=== PATIENT | male | born 1960 | race Two or more races ===

== ENCOUNTER 2022-02-25 18:42 | Inpatient (IN) | payer OTHER ==
[~2022-02-25] VITALS: Ht 157.5 cm; Wt 82.4 kg
[2022-02-25] MEDS ORDERED: FUROSEMIDE 40 MG/4 ML VIAL IV ONE (19:15)
[2022-02-25] MEDS ORDERED: ONDANSETRON HCL 4 MG/2 ML VIAL IV ONE (19:15)
[2022-02-25 19:16] LABS: Hemoglobin 15.6 g/dL (13.5-17.5); Mean Corpuscular Hemoglobin 30.3 pg (28.0-32.0); Mean Corpuscular Hgb Conc. 33.1 g/dL (32.0-36.0); Mean Corpuscular Volume 91.5 fL (80.0-100.0); Red Blood Cells 5.13 10^6/uL (4.5-5.90); Red Cell Distribution Width 14.4 % (11.8-14.3); White Blood Cell 29.7 10^3/uL (4.4-10.8)
[2022-02-25 19:20] LABS: Basophils % (manual) 0 (0.0-2.0); Blast Cells 0; Eosinophils % (manual) 0 (0-7); Myelocytes % 0; Promyelocytes % 0; Reactive Lymphocytes 0
[2022-02-25 19:32] LABS: Albumin 2.7 g/dL (3.4-5.0); BUN/Creatinine Ratio 10.6; Calcium 8.6 mg/dL (8.5-10.1); Potassium 3.2 mmol/L (3.5-5.1)
[2022-02-25 19:34] LABS: Total Protein 5.6 g/dL (6.4-8.2)
[2022-02-25 19:36] LABS: INR 1.1 (0.9-1.15); Partial Thromboplastin Time 29.1 sec (24.6-33.4)
[2022-02-25 19:37] LABS: Amylase 56 U/L (25-115); Lipase 160 U/L (73-393)
[2022-02-25] MEDS ORDERED: ALBUTEROL SULF 2.5 MG/0.5ML(0.5%) NEB SOLN NEB ONE (19:45)
[2022-02-25] MEDS: NOREPINEPHRINE 8 MG/250ML KIT 250 ML IV SCH (19:57)
[2022-02-25 20:11] LABS: Band Neutrophils % (manual) 27; Lymphocytes % (manual) 11 (10.0-50.0); Metamyelocytes % 1; Monocytes % (manual) 7 (0-12)
[2022-02-25 20:14] VITALS: BP 68/32
[2022-02-25] MEDS ORDERED: levoFLOXacin 500MG 100 ML IV ONE (20:30)
[2022-02-25 21:50] LABS: Lactic Acid w/Reflex 6.2 mmol/L (0.4-2.0)
[2022-02-25] MEDS ORDERED: SOD CHL 0.45% 1,000 ML IV ONE (22:15)
[2022-02-25] MEDS ORDERED: NITROGLYCERIN 0.4 MG SL TAB SL PRN (22:15)
[2022-02-25] MEDS ORDERED: MORPHINE SULFATE INJ 2 MG/ml SYRG IV PRN (22:15)
[2022-02-25] MEDS ORDERED: POTASSIUM CHL 20MEQ/100ML 100 ML IV ONE (22:30)
[2022-02-25] MEDS ORDERED: DOPamine 1600MCG/ML D5W 250 ML IV ONE (22:30)
[2022-02-25 22:42] LABS: Albumin 2.6 g/dL (3.4-5.0); Calcium 8.7 mg/dL (8.5-10.1); Potassium 3.6 mmol/L (3.5-5.1)
[2022-02-25 22:45] LABS: BUN/Creatinine Ratio 10.4; Bilirubin, Total 2.1 mg/dL (0.2-1.0); Total Protein 6.2 g/dL (6.4-8.2)
[2022-02-25] MEDS ORDERED: SODIUM BICARBONATE 8.4 % INJ 50ML VIAL IV ONE (22:45)
[2022-02-25] MEDS ORDERED: VANCOMYCIN PER PHARMACY 0 MG IV SCH (23:15)
[2022-02-25] MEDS ORDERED: VANCOMYCIN 1GM/250ML 250 ML IV ONE (23:30)
[2022-02-26] MEDS: ALBUTEROL SULF 2.5 MG/0.5ML(0.5%) NEB SOLN NEB SCH ×6 (00:11→18:02)
[2022-02-26 01:17] VITALS: BP 103/45
[2022-02-26] MEDS: NOREPINEPHRINE 8 MG/250ML KIT 250 ML IV SCH ×2 (01:46→22:28)
[2022-02-26 04:27] LABS: Urine Bacteria FEW /hpf (None Seen); Urine Blood 3+ /uL (Negative); Urine Mucus FEW (None Seen); Urine Specific Gravity 1.012 (1.001-1.035); Urine WBC 72 /hpf (0 - 3)
[2022-02-26 05:53] LABS: Hematocrit 47.2 % (41.0-53.0); Hemoglobin 15.8 g/dL (13.5-17.5); Mean Corpuscular Hemoglobin 30.7 pg (28.0-32.0); Mean Corpuscular Hgb Conc. 33.5 g/dL (32.0-36.0); Mean Corpuscular Volume 91.8 fL (80.0-100.0); Red Blood Cells 5.15 10^6/uL (4.5-5.90); Red Cell Distribution Width 14.4 % (11.8-14.3)
[2022-02-26] MEDS ORDERED: DOPamine 1600MCG/ML D5W 250 ML IV ONE (05:53)
[2022-02-26] MEDS ORDERED: SODIUM CHLORIDE 0.9% 500 ML IV ONE (06:00)
[2022-02-26] MEDS: DOPamine 1600MCG/ML D5W 250 ML IV SCH (06:00)
[2022-02-26] MEDS: IPRATROPIUM BROM 0.5 MG/2.5ML INH SOL NEB SCH ×5 (06:00→18:02)
[2022-02-26 06:15] LABS: Albumin 2.4 g/dL (3.4-5.0); BUN/Creatinine Ratio 9.9; Calcium 7.8 mg/dL (8.5-10.1); Potassium 3.8 mmol/L (3.5-5.1)
[2022-02-26 06:22] LABS: Bilirubin, Total 1.3 mg/dL (0.2-1.0); Total Protein 5.4 g/dL (6.4-8.2)
[2022-02-26 06:24] LABS: White Blood Cell 41.5 10^3/uL (4.4-10.8)
[2022-02-26 06:25] LABS: Basophils % (manual) 0 (0.0-2.0); Blast Cells 0; Eosinophils % (manual) 0 (0-7); Metamyelocytes % 0; Promyelocytes % 0; Reactive Lymphocytes 0
[2022-02-26 06:53] LABS: Band Neutrophils % (manual) 41; Lymphocytes % (manual) 8 (10.0-50.0); Monocytes % (manual) 1 (0-12); Myelocytes % 3
[2022-02-26] MEDS: SODIUM CHLORIDE 0.9% 1,000 ML IV SCH ×4 (07:30→20:10)
[2022-02-26] MEDS ORDERED: DEXTROSE (50%) 50ML SYRG IV PRN (07:30)
[2022-02-26] MEDS ORDERED: INSULIN LANTUS (GLARGINE) 1 /0.01ml (100units/ml) SC ONE (07:30)
[2022-02-26] MEDS: ACCU-CHEK COMFORT CURVE STRIP VI SCH ×10 (07:30→21:00)
[2022-02-26] MEDS: InsuLIN R (HUMAN) 100 UNITS in SODIUM CHL 0.9% 99 ML IV SCH ×2 (08:33→10:29)
[2022-02-26] MEDS: SODIUM BICARBONATE 50ML VIAL 75 ML in SOD CHL 0.45% 1,000 ML IV SCH ×2 (09:15→18:18)
[2022-02-26] MEDS: MEROPENEM 500MG IVPB 50 ML IV SCH ×2 (09:16→21:57)
[2022-02-26] MEDS ORDERED: VANCOMYCIN 500 MG in D5W 5% 100 ML IV ONE (09:30)
[2022-02-26 09:32] LABS: Albumin 2.4 g/dL (3.4-5.0); BUN/Creatinine Ratio 9.5; Bilirubin, Total 1.4 mg/dL (0.2-1.0); Calcium 7.9 mg/dL (8.5-10.1); Potassium 3.9 mmol/L (3.5-5.1); Total Protein 5.7 g/dL (6.4-8.2)
[2022-02-26] MEDS ORDERED: PIPERACILLIN-TAZOB 3.375GM 100 ML IV SCH (10:00)
[2022-02-26] MEDS ORDERED: methylPREDNISolone SOD SUCC 40 MG/ML VL IV SCH (10:00)
[2022-02-26] MEDS: PANTOPRAZOLE 40 MG/10 ML VIAL INJ IV SCH ×2 (10:27→21:56)
[2022-02-26 10:53] LABS: Basophils # (auto) 0.1 10 ^3/uL (0-0.2); Basophils % (auto) 0.2 % (0.0-2.0); Eosinophils % (auto) 0.1 % (0.0-7.0); Hemoglobin 14.8 g/dL (13.5-17.5); Lymphocytes % (auto) 4.1 % (10.0-50.0); Mean Corpuscular Hgb Conc. 33.1 g/dL (32.0-36.0); Monocytes # (auto) 1.1 10 ^3/uL (0-1.3); Monocytes % (auto) 2.4 % (0.0-12.0); Neutrophils % (auto) 93.2 % (37.0-80.0); Nucleated Red Blood Cells % 0.2 %
[2022-02-26 10:56] LABS: Eosinophils # (auto) 0 10 ^3/uL (0-0.8); Hematocrit 44.9 % (41.0-53.0); Lymphocytes # (auto) 1.8 10 ^3/uL (0.4-5.4); Mean Corpuscular Hemoglobin 30.1 pg (28.0-32.0); Neutrophils # (auto) 41.9 10 ^3/uL (1.6-8.6); Red Blood Cells 4.94 10^6/uL (4.5-5.90); Red Cell Distribution Width 14.5 % (11.8-14.3)
[2022-02-26 11:23] LABS: White Blood Cell 44.9 10^3/uL (4.4-10.8)
[2022-02-26] MEDS ORDERED: SODIUM CHLORIDE 0.9% 1,000 ML IV SCH (11:30)
[2022-02-26] MEDS ORDERED: MEROPENEM 1GM IVPB 100 ML IV SCH (14:00)
[2022-02-26 14:19] LABS: BUN/Creatinine Ratio 11.4; Calcium 7.9 mg/dL (8.5-10.1); Potassium 4.3 mmol/L (3.5-5.1)
[2022-02-26] MEDS ORDERED: ENOXAPARIN SOD 30 MG/0.3 ML SYRINGE SC ONE (14:30)
[2022-02-26] MEDS: PHENYLEPHRINE INJ 80 MG in SODIUM CHL 0.9% 242 ML IV SCH (14:55)
[2022-02-26 16:45] LABS: Cholesterol 110 mg/dL (< 200)
[2022-02-26 16:52] LABS: HDL Cholesterol 37 mg/dL (40-59); LDL Cholesterol 16 mg/dL (< 100); Triglycerides 347 mg/dL (< 150)
[2022-02-26] MEDS ORDERED: PHENYLEPHRINE IV 250 ML IV ONE (20:47)
[2022-02-26 21:04] LABS: BUN/Creatinine Ratio 11.7; Calcium 7.2 mg/dL (8.5-10.1); Potassium 4.9 mmol/L (3.5-5.1)
[2022-02-26] MEDS ORDERED: VASOPRESSIN 20 UNIT/ML ONE ×2 (22:35→22:38)
[2022-02-26] MEDS: VASOPRESSIN 50 UNITS in D5W 5% 247.5 ML IV SCH (23:10)
[2022-02-27] VITALS (58 sets, daily range): BP systolic 76–161; BP diastolic 32–77
[2022-02-27] MEDS ORDERED: SODIUM BICARBONATE 8.4 % INJ 50ML VIAL IV ONE (02:14)
[2022-02-27 02:17] LABS: Alcohol, Urine < 3.0 mg/dL (0-10); Amphetamine Screen, Urine NEGATIVE (NEGATIVE); Barbiturate Scree,Urine NEGATIVE (NEGATIVE); Benzodiazephine Screen, Urine NEGATIVE (NEGATIVE); Cannabinoid Screen, Urine NEGATIVE (NEGATIVE); Cocaine Screen, Urine NEGATIVE (NEGATIVE); Opiate Scree,Urine NEGATIVE (NEGATIVE); Phencyclidine Screen, Urine NEGATIVE (NEGATIVE)
[2022-02-27] MEDS: SODIUM BICARBONATE 50ML VIAL 75 ML in SOD CHL 0.45% 1,000 ML IV SCH ×3 (02:20→19:39)
[2022-02-27] MEDS: ALBUTEROL SULF 2.5 MG/0.5ML(0.5%) NEB SOLN NEB SCH ×4 (02:34→18:55)
[2022-02-27] MEDS: IPRATROPIUM BROM 0.5 MG/2.5ML INH SOL NEB SCH ×3 (02:34→18:54)
[2022-02-27] MEDS ORDERED: PHENYLEPHRINE HCL 10 MG/ML VL ONE ×2 (02:54→03:01)
[2022-02-27 03:10] LABS: BUN/Creatinine Ratio 14.4; Calcium 6.5 mg/dL (8.5-10.1); Potassium 4.6 mmol/L (3.5-5.1)
[2022-02-27] MEDS: NOREPINEPHRINE 8 MG/250ML KIT 250 ML IV SCH (03:23)
[2022-02-27] MEDS: SODIUM CHLORIDE 0.9% 1,000 ML IV SCH ×4 (03:24→22:21)
[2022-02-27] MEDS: DOPamine 1600MCG/ML D5W 250 ML IV SCH ×2 (03:24→13:46)
[2022-02-27] MEDS: PHENYLEPHRINE INJ 80 MG in SODIUM CHL 0.9% 242 ML IV SCH ×3 (04:37→23:10)
[2022-02-27 06:43] LABS: Red Cell Distribution Width 14.8 % (11.8-14.3)
[2022-02-27 06:48] LABS: Hematocrit 38.4 % (41.0-53.0); Mean Corpuscular Volume 91.3 fL (80.0-100.0)
[2022-02-27 06:58] LABS: Basophils % (manual) 0 (0.0-2.0); Blast Cells 0; Eosinophils % (manual) 0 (0-7); Myelocytes % 0; Promyelocytes % 0; Reactive Lymphocytes 0; White Blood Cell 39.6 10^3/uL (4.4-10.8)
[2022-02-27 07:07] LABS: Calcium 6.6 mg/dL (8.5-10.1); Potassium 4.3 mmol/L (3.5-5.1)
[2022-02-27 07:12] LABS: BUN/Creatinine Ratio 18.4; Bilirubin, Total 1.4 mg/dL (0.2-1.0); Total Protein 5.7 g/dL (6.4-8.2)
[2022-02-27 09:16] LABS: Band Neutrophils % (manual) 9; Lymphocytes % (manual) 1 (10.0-50.0); Metamyelocytes % 2; Monocytes % (manual) 2 (0-12)
[2022-02-27] MEDS ORDERED: THROAT LOZENGES(CEPASTAT) MT PRN (09:30)
[2022-02-27] MEDS: PANTOPRAZOLE 40 MG/10 ML VIAL INJ IV SCH ×2 (09:42→22:02)
[2022-02-27] MEDS: ENOXAPARIN SOD 30 MG/0.3 ML SYRINGE SC SCH (09:42)
[2022-02-27] MEDS: INSULIN LANTUS (GLARGINE) 1 /0.01ml (100units/ml) SC SCH (09:43)
[2022-02-27] MEDS: MEROPENEM 500MG IVPB 50 ML IV SCH ×2 (09:55→22:03)
[2022-02-27] MEDS: methylPREDNISolone SOD SUCC 40 MG/ML VL IV SCH ×2 (09:55→22:02)
[2022-02-27] MEDS ORDERED: VANCOMYCIN 1GM/250ML 250 ML IV ONE (11:30)
[2022-02-27] MEDS ORDERED: DEXTROSE (50%) 50ML SYRG IV PRN (11:45)
[2022-02-27] MEDS: InsuLIN REG 1unit/0.01ml Soln (100units/ml) SC SCH ×2 (17:00→22:00)
[2022-02-27] MEDS: ACCU-CHEK COMFORT CURVE STRIP VI SCH ×2 (17:30→22:21)
[2022-02-27] MEDS ORDERED: FUROSEMIDE 20 MG/2 ML VIAL IV ONE (18:15)
[2022-02-27] MEDS: VASOPRESSIN 50 UNITS in D5W 5% 247.5 ML IV SCH (19:41)
[2022-02-28] VITALS (97 sets, daily range): BP systolic 79–125; BP diastolic 49–75
[2022-02-28] MEDS: IPRATROPIUM BROM 0.5 MG/2.5ML INH SOL NEB SCH ×4 (00:14→19:47)
[2022-02-28] MEDS: ALBUTEROL SULF 2.5 MG/0.5ML(0.5%) NEB SOLN NEB SCH ×4 (00:14→19:47)
[2022-02-28] MEDS: DOPamine 1600MCG/ML D5W 250 ML IV SCH ×2 (03:39→21:03)
[2022-02-28] MEDS: SODIUM CHLORIDE 0.9% 1,000 ML IV SCH ×3 (03:40→18:50)
[2022-02-28] MEDS: SODIUM BICARBONATE 50ML VIAL 75 ML in SOD CHL 0.45% 1,000 ML IV SCH ×3 (05:01→21:27)
[2022-02-28] MEDS: NOREPINEPHRINE 8 MG/250ML KIT 250 ML IV SCH ×2 (05:02→05:29)
[2022-02-28 05:30] LABS: Basophils # (auto) 0 10 ^3/uL (0-0.2); Basophils % (auto) 0.1 % (0.0-2.0); Eosinophils # (auto) 0.1 10 ^3/uL (0-0.8); Eosinophils % (auto) 0.3 % (0.0-7.0); Hematocrit 35.2 % (41.0-53.0); Hemoglobin 11.9 g/dL (13.5-17.5); Lymphocytes # (auto) 0.6 10 ^3/uL (0.4-5.4); Mean Corpuscular Hemoglobin 30.3 pg (28.0-32.0); Mean Corpuscular Hgb Conc. 33.8 g/dL (32.0-36.0); Mean Corpuscular Volume 89.8 fL (80.0-100.0); Monocytes # (auto) 0.6 10 ^3/uL (0-1.3); Monocytes % (auto) 3.2 % (0.0-12.0); Neutrophils # (auto) 18.5 10 ^3/uL (1.6-8.6); Neutrophils % (auto) 93.4 % (37.0-80.0); Nucleated Red Blood Cells % 0.2 %; Red Blood Cells 3.92 10^6/uL (4.5-5.90); Red Cell Distribution Width 14.7 % (11.8-14.3); White Blood Cell 19.8 10^3/uL (4.4-10.8)
[2022-02-28] MEDS: ACCU-CHEK COMFORT CURVE STRIP VI SCH ×4 (06:05→22:17)
[2022-02-28 06:10] LABS: Albumin 1.8 g/dL (3.4-5.0); Calcium 6.7 mg/dL (8.5-10.1); Potassium 3.6 mmol/L (3.5-5.1)
[2022-02-28 06:16] LABS: BUN/Creatinine Ratio 31.2; Bilirubin, Total 0.9 mg/dL (0.2-1.0); Total Protein 4.9 g/dL (6.4-8.2)
[2022-02-28] MEDS: InsuLIN REG 1unit/0.01ml Soln (100units/ml) SC SCH ×4 (06:26→22:16)
[2022-02-28] MEDS: methylPREDNISolone SOD SUCC 40 MG/ML VL IV SCH ×2 (09:32→22:15)
[2022-02-28] MEDS: PANTOPRAZOLE 40 MG/10 ML VIAL INJ IV SCH ×2 (09:32→22:15)
[2022-02-28] MEDS: ENOXAPARIN SOD 30 MG/0.3 ML SYRINGE SC SCH (09:32)
[2022-02-28] MEDS: FUROSEMIDE 20 MG/2 ML VIAL IV SCH (09:32)
[2022-02-28] MEDS: PHENYLEPHRINE INJ 80 MG in SODIUM CHL 0.9% 242 ML IV SCH (09:33)
[2022-02-28] MEDS: MEROPENEM 500MG IVPB 50 ML IV SCH (09:33)
[2022-02-28] MEDS: INSULIN LANTUS (GLARGINE) 1 /0.01ml (100units/ml) SC SCH (09:40)
[2022-02-28] MEDS ORDERED: LOPERAMIDE HCL 2 MG CAP/TAB PO PRN (09:45)
[2022-02-28] MEDS: VANCOMYCIN 1GM/250ML 250 ML IV SCH (11:25)
[2022-02-28] MEDS: MEROPENEM 1GM IVPB 100 ML IV SCH (17:35)
[2022-02-28] MEDS: VASOPRESSIN 50 UNITS in D5W 5% 247.5 ML IV SCH (21:04)
[2022-03-01] VITALS (86 sets, daily range): BP systolic 75–112; BP diastolic 39–71
[2022-03-01] MEDS: SODIUM CHLORIDE 0.9% 1,000 ML IV SCH ×3 (00:14→21:53)
[2022-03-01] MEDS: VANCOMYCIN 1GM/250ML 250 ML IV SCH ×2 (00:47→02:10)
[2022-03-01] MEDS: ALBUTEROL SULF 2.5 MG/0.5ML(0.5%) NEB SOLN NEB SCH ×4 (01:05→19:04)
[2022-03-01] MEDS: IPRATROPIUM BROM 0.5 MG/2.5ML INH SOL NEB SCH ×4 (01:06→19:04)
[2022-03-01] MEDS: MEROPENEM 1GM IVPB 100 ML IV SCH ×3 (02:29→17:55)
[2022-03-01] MEDS: PHENYLEPHRINE INJ 80 MG in SODIUM CHL 0.9% 242 ML IV SCH (03:00)
[2022-03-01 04:48] LABS: Hemoglobin 11.4 g/dL (13.5-17.5); Mean Corpuscular Hemoglobin 30.1 pg (28.0-32.0); Mean Corpuscular Hgb Conc. 33.4 g/dL (32.0-36.0); Red Blood Cells 3.78 10^6/uL (4.5-5.90); Red Cell Distribution Width 14.7 % (11.8-14.3); White Blood Cell 11.8 10^3/uL (4.4-10.8)
[2022-03-01 04:55] LABS: Albumin 1.9 g/dL (3.4-5.0); Basophils % (manual) 0 (0.0-2.0); Bilirubin, Direct 0.4 mg/dL (0-0.2); Blast Cells 0; Calcium 7.1 mg/dL (8.5-10.1); Eosinophils % (manual) 0 (0-7); Metamyelocytes % 0; Myelocytes % 0; Potassium 3.6 mmol/L (3.5-5.1); Promyelocytes % 0; Reactive Lymphocytes 0
[2022-03-01 04:58] LABS: BUN/Creatinine Ratio 38.3; Bilirubin, Total 0.8 mg/dL (0.2-1.0)
[2022-03-01] MEDS: SODIUM BICARBONATE 50ML VIAL 75 ML in SOD CHL 0.45% 1,000 ML IV SCH (06:03)
[2022-03-01] MEDS: InsuLIN REG 1unit/0.01ml Soln (100units/ml) SC SCH ×4 (06:30→21:49)
[2022-03-01] MEDS: ACCU-CHEK COMFORT CURVE STRIP VI SCH ×4 (06:35→21:38)
[2022-03-01 06:57] LABS: Band Neutrophils % (manual) 2; Lymphocytes % (manual) 8 (10.0-50.0); Monocytes % (manual) 11 (0-12)
[2022-03-01] MEDS ORDERED: SODIUM CHLORIDE 0.9% 2,000 ML IV ONE (09:30)
[2022-03-01] MEDS: FUROSEMIDE 20 MG/2 ML VIAL IV SCH (10:46)
[2022-03-01] MEDS: methylPREDNISolone SOD SUCC 40 MG/ML VL IV SCH ×2 (10:46→21:37)
[2022-03-01] MEDS: PANTOPRAZOLE 40 MG/10 ML VIAL INJ IV SCH ×2 (10:46→21:37)
[2022-03-01] MEDS: INSULIN LANTUS (GLARGINE) 1 /0.01ml (100units/ml) SC SCH (10:49)
[2022-03-01] MEDS: DOPamine 1600MCG/ML D5W 250 ML IV SCH (14:38)
[2022-03-01] MEDS: NOREPINEPHRINE 8 MG/250ML KIT 250 ML IV SCH (19:30)
[2022-03-01] MEDS: VASOPRESSIN 50 UNITS in D5W 5% 247.5 ML IV SCH (21:53)
[2022-03-02] VITALS (18 sets, daily range): BP systolic 90–108; BP diastolic 48–73
[2022-03-02] MEDS: VANCOMYCIN 1GM/250ML 250 ML IV SCH ×2 (00:07→13:08)
[2022-03-02] MEDS: ALBUTEROL SULF 2.5 MG/0.5ML(0.5%) NEB SOLN NEB SCH ×4 (00:27→17:47)
[2022-03-02] MEDS: IPRATROPIUM BROM 0.5 MG/2.5ML INH SOL NEB SCH ×4 (00:28→17:47)
[2022-03-02] MEDS: MEROPENEM 1GM IVPB 100 ML IV SCH ×2 (01:44→09:55)
[2022-03-02] MEDS: SODIUM CHLORIDE 0.9% 1,000 ML IV SCH (04:10)
[2022-03-02 04:30] LABS: Hematocrit 34.3 % (41.0-53.0)
[2022-03-02 04:31] LABS: Hemoglobin 11.4 g/dL (13.5-17.5); Mean Corpuscular Hemoglobin 30.1 pg (28.0-32.0); Mean Corpuscular Hgb Conc. 33.3 g/dL (32.0-36.0); Mean Corpuscular Volume 90.5 fL (80.0-100.0); Red Blood Cells 3.79 10^6/uL (4.5-5.90); Red Cell Distribution Width 14.3 % (11.8-14.3); White Blood Cell 6.2 10^3/uL (4.4-10.8)
[2022-03-02 04:41] LABS: Albumin 1.9 g/dL (3.4-5.0); BUN/Creatinine Ratio 43.2; Basophils % (manual) 0 (0.0-2.0); Blast Cells 0; Calcium 7.3 mg/dL (8.5-10.1); Eosinophils % (manual) 0 (0-7); Metamyelocytes % 0; Myelocytes % 0; Potassium 3.7 mmol/L (3.5-5.1); Promyelocytes % 0; Reactive Lymphocytes 0
[2022-03-02] MEDS: DOPamine 1600MCG/ML D5W 250 ML IV SCH (05:18)
[2022-03-02] MEDS: ACCU-CHEK COMFORT CURVE STRIP VI SCH ×3 (06:38→17:22)
[2022-03-02] MEDS: InsuLIN REG 1unit/0.01ml Soln (100units/ml) SC SCH ×3 (06:39→17:23)
[2022-03-02 08:34] LABS: Band Neutrophils % (manual) 6; Lymphocytes % (manual) 10 (10.0-50.0); Monocytes % (manual) 7 (0-12)
[2022-03-02] MEDS: methylPREDNISolone SOD SUCC 40 MG/ML VL IV SCH (09:54)
[2022-03-02] MEDS: PANTOPRAZOLE 40 MG/10 ML VIAL INJ IV SCH (09:54)
[2022-03-02] MEDS: FUROSEMIDE 20 MG/2 ML VIAL IV SCH (09:55)
[2022-03-02] MEDS: INSULIN LANTUS (GLARGINE) 1 /0.01ml (100units/ml) SC SCH (09:57)
== END 2022-03-02 18:25 | disposition home health service (06) | DRG 720 ==
LOC: ER 18:45 → TELE 22:11 → ICU WEST 02-27 09:22
PROVIDERS: ADMIT Internal Medicine; ATTEND Internal Medicine
PROC: 5A09357 Assistance with Respiratory Ventilation, Less than 24 Consecutive Hours, Continuous Positive Airway Pressure (ICD-10-PCS; principal; 2022-02-25)
PROC: 06HY33Z Insertion of Infusion Device into Lower Vein, Percutaneous Approach (ICD-10-PCS; 2022-02-25)
DX: A41.9 Sepsis, unspecified organism (principal); J96.01 Acute respiratory failure with hypoxia; R65.21 Severe sepsis with septic shock; I21.A1 Myocardial infarction type 2; N17.9 Acute kidney failure, unspecified; J18.9 Pneumonia, unspecified organism; I50.9 Heart failure, unspecified; Z20.822 Contact with and (suspected) exposure to COVID-19; K70.30 Alcoholic cirrhosis of liver without ascites; E66.9 Obesity, unspecified; K59.00 Constipation, unspecified; F10.10 Alcohol abuse, uncomplicated; N39.0 Urinary tract infection, site not specified; Z68.30 Body mass index [BMI] 30.0-30.9, adult
CPT/HCPCS: 36415; 36600; 70450; 71045; 71250; 74018; 74176; 76700; 76705; 80048; 80053; 80061; 80076; 80202; 80307; 81001; 82010; 82150; 82805; 82962; 83036; 83605; 83690; 83735; 83880; 83930; 84100; 84443; 84484; 85007; 85025; 85027; 85379; 85610; 85730; 87040; 87070; 87081; 87086; 87205; 87426; 87493; 87804; 93005; 93306; 94640; 94660; 96374; 99291; C9113; G0378; J1815; J1956; J2185; J2405; J7060

== ENCOUNTER 2024-08-10 07:00 | Inpatient (IN) | payer OTHER ==
[~2024-08-10] VITALS: Ht 154.9 cm; Wt 77.0 kg
[2024-08-10] VITALS (9 sets, daily range): BP systolic 103–136; BP diastolic 60–84; PULSE 57–97; RESP 12–19; TEMP 97.1–98.4; O2SAT 89–97
[2024-08-10] MEDS: ceFAZolin 2 GM/D5W50ml 50 ML IV ONE (07:19)
[2024-08-10] MEDS: ACETAMINOPHEN IV 100 ML IV ONE (07:20)
[2024-08-10] MEDS: PREGABALIN CAPSULE 75 MG CAP PO ONE (07:30)
[2024-08-10] MEDS: CELECOXIB 100 MG CAP PO ONE (07:45)
[2024-08-10] MEDS: ACETAMINOPHEN IV 1000 MG/100ML (10MG/ML) IV ONE (07:45)
[2024-08-10] MEDS: PREGABALIN CAPSULE 75 MG CAP ONE (07:45)
[2024-08-10] MEDS: CELECOXIB 100 MG CAP ONE (08:17)
[2024-08-10] MEDS ORDERED: fentaNYL CITRATE 100 MCG/2 ML VL ONE (08:18)
[2024-08-10] MEDS ORDERED: MIDAZOLAM HCL 2MG/2ML 2ml VIAL (1mg/ml) ONE (08:18)
[2024-08-10] MEDS ORDERED: KETAMINE 50mg/ML 1ml syringe ONE (08:18)
[2024-08-10] MEDS ORDERED: MORPHINE SULF PF 5 MG/10 ML VIAL ONE (08:19)
[2024-08-10] MEDS ORDERED: DexAMETHasone SOD PHOS 10MG/1ML VIAL INJ ONE (08:19)
[2024-08-10] MEDS ORDERED: GLYCOPYRROLATE 0.2 MG/ML 1ML VIAL ONE (08:19)
[2024-08-10] MEDS ORDERED: KETOROLAC TROMETH 30 MG/ML 1ML VIAL ONE ×2 (08:19→08:38)
[2024-08-10] MEDS ORDERED: PHENYLEPHRINE HCL 10 MG/ML VL ONE (08:19)
[2024-08-10] MEDS ORDERED: ePHEDrine SULFATE 50 MG/ML AMP ONE (08:19)
[2024-08-10] MEDS ORDERED: ONDANSETRON HCL 4 MG/2 ML VIAL ONE (08:19)
[2024-08-10] MEDS ORDERED: PROPOFOL 10 MG/ML 20 ML IV ONE (08:19)
[2024-08-10] MEDS: CEFEPIME 1GM/ 50ML 50 ML IV ONE (08:21)
[2024-08-10] MEDS: TRANEXAMIC ACID 20 ML ONE (08:21)
[2024-08-10] MEDS: BUPIVACAINE 0.25% INJ 50ML VIAL ONE (08:39)
[2024-08-10] MEDS: VANCOMYCIN HCL 1000 MG VL ONE (10:27)
[2024-08-10] MEDS ORDERED: ONDANSETRON HCL 4 MG/2 ML VIAL IV PRN ×3 (10:45→15:00)
[2024-08-10] MEDS ORDERED: MORPHINE SULFATE INJ 2 MG/ml SYRG IV PRN (10:45)
[2024-08-10] MEDS ORDERED: HYDROmorphone HCL 2 MG/ML VL/or syr IV PRN ×2 (10:45→14:45)
[2024-08-10] MEDS ORDERED: HYDROcodone-ACET 5/325MG TAB PO PRN (10:45)
[2024-08-10] MEDS ORDERED: NITROGLYCERIN 0.4 MG SL TAB SL PRN (10:45)
--- NOTE | 2024-08-10 11:08 | DVHOP2 ---
Operative Report DATE OF SURGERY IS 08/10/2024 PREOPERATIVE DIAGNOSIS IS LEFT KNEE OSTEOARTHRITIS POSTOPERATIVE DIAGNOSE THE SAME SURGICAL PROCEDURE LEFT TOTAL KNEE ARTHROPLASTY COMPUTER NAVIGATION LEFT TOTAL KNEE ARTHROPLASTY SURGEON NELI WASSERMAN ANESTHESIOLOGIST SINCERE WHITEHEAD COMPLICATIONS NONE CONDITION STABLE TO PACU ESTIMATED BLOOD LOSS 50 CC ASSESSMENT AND PLAN WEIGHTBEARING TOLERATED IN THE LEFT LOWER EXTREMITY PTOT OUT OF BED DAILY FOLLOW-UP IN 2 WEEKS' TIME SURGICAL PROCEDURE AND INDICATIONS THE PATIENT IS A 64-YEAR-OLD MALE WHO HAS ONGOING PAIN THE LEFT KNEE IS FOR CONSERVATIVE MEASURES WITH PHYSICAL THERAPY ACTIVITY MODIFICATION HAS ONGOING PAIN WITH ANY KIND OF RANGE OF MOTION OR FUNCTION OF THE KNEE. THE PATIENT HAS FAILED ANY KIND OF ACTIVITY MODIFICATIONS OF THE LEFT KNEE. THE PATIENT IS SEEN IN THE PREOPERATIVE HOLDING OF THE LEFT LOWER EXTREMITIES MARKED THE PATIENT WAS BROUGHT TO THE OPERATIVE SUITE GENERAL ANESTHESIA IS AND IS TIME-OUT SOME TO HO SPITAL PROTOCOL THE LEFT LOWER EXTREMITIES WERE 2 DIABETES INTERVENTION IF IT IS GOING FOR INFECTION PROPHYLAXIS TXA WAS GIVEN FOR BLEEDING PROPHYLAXIS HIS LEFT LOWER EXTREMITIES WERE PREPPED AND DRAPED IN THE STANDARD FASHION WAS AT HIS THEN DONE AN INCISION IS MADE THROUGH SKIN SUBCU TISSUE MUSCLE FASCIA DOWN TO THE VMO QUAD JUNCTION OF THE FAT PAD WAS THEN REMOVED OFF THE ANTERIOR COMPARTMENT ONCE IT WAS THEN DONE ON THE A SMALL MEDIAL RELEASE WAS THEN COMPLETED ALONG WITH THE DEEP MCL ONCE THAT IS COMPLETED THE PATIENT IS A RATHER SIGNIFICANT OSTEOARTHRITIS OF THE MEDIAL COMPARTMENT WAS I WAS UNDER THE ACL PCL WERE TRANSECTED THE ANTERIOR HORN OF THE MEDIOLATERAL MENISCUS ON TRANSECTED THE PROXIMAL TIBIA WAS THEN EXPOSED USING COMPUTER NAVIGATION MAGIC ATRAUMATIC IN MECHANICAL AXIS WITHOUT FLEXION AND EXTENSION WITH ACUTE HEMATOCRIT MECHANICAL AXIS WITH A 4 OF FLEXION WITH A 2 DEGREE CUT BASED ON THE MC POLY THAT WE WOULD BE USING BASED ON THE FACT THAT WE WOULD BE USING A DEEP DISH POLY ON THE TO DEG REE OF SLOPE WAS THEN CUT WITH A COMPUTER NAVIGATION WITH MECHANICAL AND KINEMATIC ACCESS WITH A NEUTRAL CUT ONCE IT WAS THEN DONE A 10 MM WAS TAKEN OFF THE LATERAL SIDE ONCE THAT IS COMPLETED THE APPROPRIATE MANNER ATTENTION WAS THEN TURNED TO THE DISTAL FEMORAL CUT WORK. NAVIGATION WAS BROUGHT INTO THE FIELD WITH FLEXION-EXTENSION INTERNAL-EXTERNAL ROTATION THE 3 OF FLEXION HIS CAR WITH NEUTRAL KINEMATIC AND NEGATIVE MECHANICAL AXIS WITH A CUT OF THE DISTAL FEMORAL CUT WAS THEN COMPLETED A FEMORAL BLOCK IS THEN SIZED TO A SIZE 4 FEMORAL BLOCK THE 4 IN 1 CUTTING BLOCK WAS THEN USED THE POSTERIOR OSTEOPHYTES WERE CAREFULLY REMOVED THE ACL IS CAREFULLY REMOVED WITH THE MEDIAL AND LATERAL MENISCUS WERE CAREFULLY REMOVED THE PCL WAS THEN PROCALCITONIN ONCE THAT IS INCOMPLETE IN THE APPROPRIATE MANNER ATTENTION IS THEN TURNED TO THE SIZE 3 TIBIAL BASE PLATE IS PUNCH AND KEEL IN THE APPROPRIATE MANNER ALONG THE MEDIAL 1/3 OF TIBIAL TUBERCLE PATELLAR NEURECTOMY KNOWS ALL THE OSTEOPHYTES WERE CAREFULLY REMOVED THE SIZE 4 FEMORAL COMPONENT WAS THEN PREPPED A SPACER BLOCK PRIOR TO ANY PREPPING HE HAS HAD DONE A 11 M READER BETADINE SPACER BLOCK IS THEN BALANCED AT TIBIAL TUBERCLE OSTEOTOMIES AND COMPLETED TO REMOVE THE ATTACHMENT OF THE MCL I ALSO I DI PANCREAS IT OUT OF THE MCL WITH A SPINAL NEEDLE WITH ELONGATION OF THE MCL TO GET THE BOWELS ONCE THAT WAS THEN COMPLETED A 12 MM POLYETHYLENE LINER WAS BALANCED IN FLEXION/THE INTERNAL OS ROTATION ALL THE TRIAL COMPONENTS WERE CAREFULLY REMOVED A SIZE 3 LARA AND NEPHEW TIBIAL CEMENT LESS TIBIAL BASE PLATE IS PLACED INTO POSITION I A 12 MM DEEP DISH POLY SOME PLACED INTO POSITION AND A THE SIZE 4 FEMORAL COMPONENT CEMENTED IN POSITION C IRRIGATED, SALINE WITH BETADINE FOLLOWED BY VANCOMYCIN POWDER FOLLOWED BY ARTHROTOMY CLOSED THE NONUNITED FULL EXTENSION TO 90 OF FLEXION TO PREVENT PATELLA BAJA WITH A 1. STRATAFIX OVER A GOAL 2-0 MONOCRYL AND THEN A BRIDGE AT DRESSING ON THE SUPERFICIAL SKIN. PATIENT WILL BE WEIGHT-BEARING TOLERATED ON THE LEFT LOWER EXTREMITY PT OT OUT OF BED DAILY FOLLOW UP IN 2 WEEKS' TIME NELI RYAN MD Aug 10, 2024 11:08
[2024-08-10] MEDS ORDERED: diphenhdrAMINE HCL 50 MG/1 ML VL IV PRN (11:45)
[2024-08-10] MEDS ORDERED: KETOROLAC TROMETH 30 MG/ML 1ML VIAL IV PRN (11:45)
[2024-08-10] MEDS ORDERED: NALOXONE HCL 0.4 MG/ML VIAL IV PRN (11:45)
[2024-08-10] MEDS ORDERED: DexAMETHasone SOD PHOS 10MG/1ML VIAL INJ IV PRN (11:45)
--- NOTE | 2024-08-10 12:55 | DVH ---
EXAM: XY L KNEE 3V XRAY CLINICAL INDICATION: S/P SURGERY TECHNIQUE: XY L KNEE 3V XRAY Comparison: None FINDINGS/IMPRESSION: Left total knee arthroplasty.
[2024-08-10] MEDS: ceFAZolin 1GM/50ML 50 ML IV SCH (15:33)
[2024-08-10] MEDS: SODIUM CHLOR 0.9% PF (SALINE LOCK) 10ML VIAL/SYR IV SCH (17:09)
[2024-08-10] MEDS: LACTATED RINGER'S 1,000 ML IV SCH (17:22)
[2024-08-10] MEDS: CEFEPIME 1GM/ 50ML 50 ML IV SCH (18:10)
[2024-08-10] MEDS: DOCUSATE SOD 100 MG CAP PO SCH (21:32)
[2024-08-11] VITALS (17 sets, daily range): BP systolic 92–142; BP diastolic 57–78; PULSE 59–87; RESP 16–19; TEMP 97.9–98.9; O2SAT 91–97
--- NOTE | 2024-08-11 07:48 | DVHPN2 ---
Progress Note Date Seen: Aug 11, 2024 Medical Necessity Reason Pt with a Central, PICC or Fol: No Subjective Patient reports: No new complaints Objective vital signs Vital Sign Date Time Temp Pulse Resp B/P (MAP) Pulse Ox O2 Delivery O2 Flow Rate FiO2 08/11/24 07:00 87 19 93 08/11/24 05:00 98.3 121/71 (88) 98.3 08/10/24 20:00 Room Air* 0 21 Total Intake and Output 08/10/24 08/10/24 08/11/24 15:00 23:00 07:00 Intake Total 100 ml 610 ml 850 ml Output Total 1100 ml Balance 100 ml 610 ml -250 ml medications Current Medications Medications Dose Ordered Sig/Ken Route Start Time Stop Time Status Last Admin Dose Admin Lactated Ringer's 1,000 ml @ 100 mls/hr Q10H IV 08/10/24 10:45 08/10/24 17:22 100 MLS/HR Sodium Chloride 10 ml Q8HR IV 08/10/24 14:00 08/11/24 06:02 10 ML Acetaminophen/ Hydrocodone Bitart 1 tab Q4HP PRN PO 08/10/24 10:45 Cancel Hydromorphone HCl 1 mg Q2HP PRN IV 08/10/24 10:45 Cancel Ondansetron HCl 4 mg Q6HP PRN IV 08/10/24 10:45 Cancel Docusate Sodium 100 mg Q12HR PO 08/10/24 22:00 08/10/24 21:32 100 MG Enoxaparin Sodium 40 mg DAILY SC 08/11/24 10:00 Nitroglycerin 0.4 mg Q5MINP PRN SL 08/10/24 10:45 Morphine Sulfate 2 mg Q30M PRN IV 08/10/24 10:45 Cefepime HCl 50 ml @ 12.5 mls/hr DAILY IV 08/11/24 10:00 UNV Diphenhydramine HCl 25 mg Q4HP PRN IV 08/10/24 11:45 Ondansetron HCl 4 mg Q4HP PRN IV 08/10/24 11:45 Cancel Ketorolac Tromethamine 30 mg Q6HP PRN IV 08/10/24 11:45 08/15/24 11:44 Cefepime HCl 50 ml @ 12.5 mls/hr Q12H IV 08/10/24 15:00 08/11/24 02:36 12.5 MLS/HR Hydromorphone HCl 1 mg Q3HP PRN IV 08/10/24 14:45 Acetaminophen/ Hydrocodone Bitart 1 tab Q4HP PRN PO 08/10/24 14:45 Ondansetron HCl 4 mg Q6HPRN PRN IV 08/10/24 15:00 Examination: GENERAL:Normal, MSK:Abnormal laboratory and microbiology Test 08/11/24 07:12 Range/Units Serum Glucose Pending Problem List/Assessment/Plan Problem List/Assessment/Plan 64 year old female who is s/p Left TKA POD 1 1. Pain control 2. DVT ppx 3. Physical therapy 4. WBAT LLE with use of walker 5. CPM as ordered Plan discussed with: Patient My Orders My Orders Orders - TONG VILLAR NP Procedure Category Date Status Time Ondansetron Hcl PHA 08/10/24 In Process (Rhonda) 15:00 Date of Service: Aug 11, 2024 Billing Provider: BABAK CARPIO MD Common Visit Codes: NOT BILLABLE TONG VILLAR NP Aug 11, 2024 07:48
[2024-08-11 08:14] LABS: Alanine Aminotransferase 33 U/L (7-40); Albumin 4.2 g/dL (3.2-4.8); Alkaline Phosphatase 85 U/L (46-116); Anion Gap 11 (5-15); Aspartate Aminotransferase 25 U/L (13-40); Bilirubin, Total 0.8 mg/dL (0.2-1.0); Blood Urea Nitrogen 14 mg/dL (9-23); Calcium 9.5 mg/dL (8.7-10.4); Carbon Dioxide 21 mmol/L (20-31); Chloride 104 mmol/L (98-107); Potassium 4.1 mmol/L (3.5-5.1)
[2024-08-11 08:17] LABS: Glucose 144 mg/dL (74-106); Sodium 136 mmol/L (136-145)
[2024-08-11] MEDS: ENOXAPARIN SOD 40 MG/0.4 ML SYRINGE SC SCH (09:18)
[2024-08-11] MEDS ORDERED: CEFEPIME 1GM/ 50ML 50 ML IV SCH (10:00)
[2024-08-11] MEDS: LACTATED RINGER'S 1,000 ML IV SCH (21:29)
[2024-08-12 01:00] VITALS: BP 143/75; PULSE 65; RESP 16; TEMP 98.3; O2SAT 95
[2024-08-12] MEDS: HYDROcodone-ACET 10/325MG TAB PO PRN (02:23)
[2024-08-12 05:00] VITALS: BP 131/73; PULSE 61; RESP 20; TEMP 98.1; O2SAT 93
[2024-08-12 07:20] LABS: Hematocrit 40.8 % (41.0-53.0); Hemoglobin 13.7 g/dL (13.5-17.5)
--- NOTE | 2024-08-12 07:44 | DVHDS2 ---
Discharge Summary Date of Admission Aug 10, 2024 at 10:45 Date of Discharge: Aug 12, 2024 Wounds: 1. You will likely have a gel-type dressing over your wound, you may keep this on for 7-14 days after leaving the hospital until your first post-op visit, unless it becomes soiled or your skin becomes irritated. If a wound vac dressing is placed on your knee this is to be left in place for one week and will be changed as needed. After your remove the dressing or wound vac, the home health nurse may place clean dry dressing over your wound. Keep wound covered, clean and dry for two weeks. 2. [place]one will be removed during your initial post-op visit. If you have concerns about our wound, please call the office immediately. If nervous about staple removal can take pain pill one hour prior to appointment. 3. If there is drainage from your wound, change the dressing daily until it stops. If drainage lasts more than 10 days, call our office. 4. Low grade (up to 100 degrees) fever is common for the first week after surgery. You should take your temperature daily. If you have fevers of 101 or more, please call the office. Labs/Diagnostic Data: Laboratory Results Test 08/12/24 06:18 08/11/24 07:12 Hemoglobin 13.7 g/dL (13.5-17.5) Hematocrit 40.8 % (41.0-53.0) Sodium Level 136 mmol/L (136-145) Potassium Level 4.1 mmol/L (3.5-5.1) Chloride Level 104 mmol/L (98-107) Carbon Dioxide Level 21 mmol/L (20-31) Anion Gap 11 (5-15) Blood Urea Nitrogen 14 mg/dL (9-23) Creatinine 0.70 mg/dL (0.700-1.30) Glomerular Filtration Rate Calc 104 mL/min (>90) BUN/Creatinine Ratio 20.0 (10.0-20.0) Serum Glucose 144 mg/dL (74-106) Calcium Level 9.5 mg/dL (8.7-10.4) Total Bilirubin 0.8 mg/dL (0.2-1.0) Aspartate Amino Transferase (AST) 25 U/L (13-40) Alanine Aminotransferase (ALT) 33 U/L (7-40) Alkaline Phosphatase 85 U/L (46-116) Total Protein 7.0 g/dL (5.7-8.2) Albumin 4.2 g/dL (3.2-4.8) Other Laboratory Tests 08/12/24 06:18 08/11/24 07:12 Brief Hx & Hospital Course: s/p left total knee arthroplasty Condition at Discharge: Good Final Diagnosis/Problems List left knee osteoarthritis Discharge Disposition: Home with Health Services Discharge Instruct/Medications Diet: Regular Diet comment: may advance diet as tolerated, drink plenty of fluids Activity: See Comment Activity comment: 1. You can bear as much weight as you tolerate on your knee unless specifically instructed otherwise. You may use the walking aid which you were discharged with and switch to a cane whenever you feel comfortable doing so. You should use an assistive device until you can walk comfortably without it. Keep in mind that every patient moves at their own speed of recovery so take your time. 2. A physical therapist will visit you at home. 3. Use CPM machine as instructed (6 hours a day) and increase flexion by 5 degrees daily. 4. High impact activity such as jumping, aerobics, tennis, and skiing are not permitted during the first 3 months after surgery. These activities can contribute to accelerated wear and should be done with caution after this time. Discuss this with your surgeon if you have questions. 5. Although a bath or whirlpool is NOT permitted during the first 2-3 weeks, you may shower as soon as you get home from the hospital provided there is no wound drainage. Place a dressing or covering over the wound when you shower. 6. Swimming is not permitted until the wound is healed, which typically occurs approximately 3-4 weeks after surgery. Follow Up/Referral: 1. Driving is not permitted within the first 2 weeks. 2. Your first postoperative visit will take place 2 weeks after discharge. Please call the office once you are home from the hospital to arrange this appointment. 3. Antibiotic preventative treatment is required before dental or other invasive procedures. Please ask your surgeon about this at your first postoperative visit. If you experience chest pain, shortness of breath or severe painful calf swelling, go to the nearest emergency room to be evaluated. Please call our office once your situation is stabilized. Medications: 1. You will be discharged with pain medication, a blood thinner (unless you were previously on a blood thinner prior to surgery) and stool softener. Please follow the instructions regarding these medications as provided by your nurse at the hospital upon discharge. 2. Blood clots in the leg are a known complication of surgery. It is very important that you take the medication to protect against clots. Depending on what you are discharged on typically it is Lovenox 40mg daily for 2 weeks or Aspirin 81mg twice daily for 4 weeks. After you finish this, you should then take baby Aspirin (81mg) once daily for 2 weeks. 3. You should restart all of your prescription medications once discharged from the hospital/surgery center unless specifically instructed otherwise. 4. Herbal supplements may be restarted 2 weeks after surgery. 5. If you have been given Coumadin as a blood thinner, please follow up with your special agent during the first two weeks after surgery to review medications and overall medical well-being. 6. Please note that narcotic pain medication may cause constipation. Please remember to take stool softeners (Colace) when using narcotics to help reduce the change of constipation. You should not use alcohol together with narcotic medication. Discharge Statement: "Patient was advised to return to the ER or call 911 if any headaches, dizziness, shortness of breath, chest pain, abdominal pain, bleeding, fevers, or worsening of medical condition. Patient was counseled about treatment plan, medications, possible side effects, patientverbalized understanding. All questions were answered to the best of my ability. This discharge took greater then 30 minutes in planning, reviewing documentation, counseling the patient, and discussing with other team members." ASSESSMENT ASSESSMENT Assessment TONG VILLAR NP Aug 12, 2024 07:44
[2024-08-12 08:00] VITALS: PULSE 67; PULSE 73; RESP 18; O2SAT 94
[2024-08-12 09:00] VITALS: BP_SYST 126; BP_SYST 137; BP_DIAS 60; BP_DIAS 71; PULSE 61; PULSE 62; RESP 17; RESP 18; TEMP 98.1; TEMP 98.4; O2SAT 96
[2024-08-12 13:15] VITALS: BP 157/92; PULSE 67; RESP 18; TEMP 98.3; O2SAT 97
[2024-08-12 13:52] VITALS: BP 157/92; PULSE 67; RESP 18; TEMP 98.3; O2SAT 97
== END 2024-08-12 14:34 | disposition home health service (06) | DRG 326 ==
LOC: SUR 07:00 → OVERFLOW 10:45 → TELE-WESTW 15:54
PROVIDERS: ADMIT Orthopaedic Surgery Adult Reconstructive Orthopaedic Surgery; ATTEND Orthopaedic Surgery
PROC: 8E0YXBZ Computer Assisted Procedure of Lower Extremity (ICD-10-PCS; 2024-08-10)
PROC: 0SRD0J9 Replacement of Left Knee Joint with Synthetic Substitute, Cemented, Open Approach (ICD-10-PCS; principal; 2024-08-10 09:24)
DX: M17.12 Unilateral primary osteoarthritis, left knee (principal)
CPT/HCPCS: 36415; 73562; 80053; 85014; 85018; 86850; 86900; 86901; 97110; 97116; 97163; G0378; J0131; J1100; J1885; J2250; J2405; J2704; J3490